=== PATIENT | female | born 1945 | race Caucasian/White ===

== ENCOUNTER → 2019-12-22 15:13 | Outpatient (BNVA) | payer MEDICARE, SELFPAY | PROVIDERS: PCP Internal Medicine; Visit Provider Urology | DX: R35.0 Frequency of micturition (principal); Z87.440 Personal history of urinary (tract) infections; Z79.899 Other long term (current) drug therapy | CPT/HCPCS: 99213 ==

== ENCOUNTER → 2020-03-22 08:48 | Outpatient (BNVA) | payer MEDICARE, SELFPAY | PROVIDERS: PCP Internal Medicine; Visit Provider Urology | DX: Z76.89 Persons encountering health services in other specified circumstances (principal) | CPT/HCPCS: Q3014 ==

== ENCOUNTER 2020-11-10 09:54 | Outpatient (REF) | payer MEDICARE, SELFPAY | END 2020-11-10 09:55 | disposition home or self-care (01) | LOC: HO.LNP 09:54 | PROVIDERS: PCP Internal Medicine | DX: N39.0 Urinary tract infection, site not specified (principal) | CPT/HCPCS: 81002; 87086; 87088; 87186; 99212 ==

== ENCOUNTER → 2020-12-22 10:36 | Outpatient (BNVA) | payer OTHER, MEDICARE, SELFPAY | PROVIDERS: PCP Internal Medicine ==

== ENCOUNTER → 2021-02-21 08:32 | Outpatient (BNVA) | payer OTHER, MEDICARE, SELFPAY | PROVIDERS: PCP Internal Medicine ==

== ENCOUNTER 2021-02-28 12:01 | Outpatient (REF) | payer OTHER, MEDICARE, SELFPAY ==
[2021-02-28 14:03] LABS: Estimated Average Glucose 126 mg/dL
[2021-02-28 14:17] LABS: Alanine Aminotransferase 6 U/L (0-31); Albumin Level 3.7 g/dL (3.5-5.0); Alkaline Phosphatase 85 U/L (39-117); Anion Gap 14 (12-20); Aspartate Amino Transferase 18 U/L (5-31); Bilirubin Total 0.3 mg/dL (0.0-1.0); Blood Urea Nitrogen 31 mg/dL (9-16); Calcium 9.3 mg/dL (8.4-10.2); Carbon Dioxide 19 mmol/L (22-29); Chloride 109 mmol/L (96-108); Estimated Glomerular Filt Rate > 60; Glucose Random 80 mg/dL (60-115); Potassium 4.8 mmol/L (3.3-5.1); Sodium 137 mmol/L (135-145); Total Protein 7.1 g/dL (6.5-8.0)
== END 2021-02-28 12:02 | disposition home or self-care (01) ==
LOC: HO.10HDL 12:01
PROVIDERS: Visit Provider Internal Medicine
DX: D64.9 Anemia, unspecified (principal); E11.40 Type 2 diabetes mellitus with diabetic neuropathy, unspecified; R30.0 Dysuria
CPT/HCPCS: 36415; 80053; 83036; 87086; 87088; 87186

== ENCOUNTER → 2021-05-25 08:39 | Outpatient (BNVA) | payer MEDICARE, SELFPAY | PROVIDERS: PCP Internal Medicine | DX: R35.0 Frequency of micturition (principal); N39.0 Urinary tract infection, site not specified | CPT/HCPCS: Q3014 ==

== ENCOUNTER → 2021-06-02 11:41 | Outpatient (BNVA) | payer MEDICARE, SELFPAY | PROVIDERS: PCP Internal Medicine | DX: N39.0 Urinary tract infection, site not specified (principal); R35.0 Frequency of micturition | CPT/HCPCS: Q3014 ==

== ENCOUNTER 2021-10-12 10:41 | Outpatient (REF) | payer MEDICARE, SELFPAY ==
[2021-10-12 12:22] LABS: Estimated Average Glucose 131 mg/dL; Hemoglobin A1c % 6.2 %
[2021-10-12 12:48] LABS: Alanine Aminotransferase 6 U/L (0-31); Albumin Level 3.9 g/dL (3.5-5.0); Alkaline Phosphatase 90 U/L (39-117); Anion Gap 14 (12-20); Aspartate Amino Transferase 18 U/L (5-31); Bilirubin Total 0.3 mg/dL (0.0-1.0); Blood Urea Nitrogen 31 mg/dL (9-16); Calcium 9.1 mg/dL (8.4-10.2); Carbon Dioxide 21 mmol/L (22-29); Chloride 108 mmol/L (96-108); Estimated Glomerular Filt Rate > 60; Glucose Random 112 mg/dL (60-115); Potassium 5.4 mmol/L (3.3-5.1); Sodium 138 mmol/L (135-145); Total Protein 7.1 g/dL (6.5-8.0)
== END 2021-10-12 10:42 | disposition home or self-care (01) ==
LOC: HO.LAB 10:41
PROVIDERS: PCP Internal Medicine; Visit Provider Internal Medicine
DX: Z00.00 Encounter for general adult medical examination without abnormal findings (principal); R80.8 Other proteinuria; R30.0 Dysuria; E11.40 Type 2 diabetes mellitus with diabetic neuropathy, unspecified; D63.8 Anemia in other chronic diseases classified elsewhere
CPT/HCPCS: 36415; 80053; 83036; 87086; 87088; 87186

== ENCOUNTER 2022-01-08 11:28 | Outpatient (REF) | payer MEDICARE, SELFPAY ==
[2022-01-08 13:48] LABS: Appearance Urine Turbid; Color Urine Yellow; Glucose Urine UA Negative (Negative); Leukocyte Esterase Urine Large (3+) (Negative); Nitrite Urine Negative (Negative); PH 5.5 (5.0-9.0); Specific Gravity - Urine 1.025 (1.005-1.025); UMIC TRIGGER UA YES; Urine Blood Moderate (2+) (Negative); Urine Ketones Negative (Negative); Urine Protein 300 (3+) mg/dL (Neg-Trace)
[2022-01-08 13:51] LABS: Bacteria Urine 4+ (None Seen); Hyaline Casts Urine 0-2 /LPF (0-2); WBC Urine >50 /HPF (0-5)
== END 2022-01-08 11:29 | disposition home or self-care (01) ==
LOC: HO.10HDL 11:28
PROVIDERS: Visit Provider Urology
DX: N39.0 Urinary tract infection, site not specified (principal)
CPT/HCPCS: 81001; 87086; 87088; 87186

== ENCOUNTER 2022-01-11 10:39 | Outpatient (REF) | payer OTHER, SELFPAY ==
--- NOTE | ~2022-01-11 | XR_ITS ---
EXAMINATION: XR SHOULDER RIGHT XR SHOULDER LEFT CLINICAL INFORMATION: Frozen shoulder COMPARISON: None TECHNIQUE: Right shoulder, 4 views Left shoulder, 4 views FINDINGS: Right shoulder: Bones appear to be diffusely osteopenic. There is calcium deposition at the mildly degenerated acromioclavicular joint -- possibly representing calcium pyrophosphate dihydrate crystal deposition. At the glenohumeral joint, there is severe loss of articular cartilage space, chronic articular surface mechanical erosions/remodeling, subarticular sclerosis, subarticular cystic change and exuberant osteophyte formation. A tube projects over the right neck and chest. Atherosclerotic calcification of the aorta and right axillary/brachial artery. Mitral valve annulus is calcified. Left shoulder: Bones appear to be diffusely osteopenic. There is calcium deposition at the mildly degenerated acromioclavicular joint. Findings at the left glenohumeral joint are similar to those seen on the right. There is severe loss of the glenohumeral joint space with [id number] contact, articular surface remodeling, subarticular sclerosis, subarticular cystic change and exuberant osteophyte formation. 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 * Severe osteoarthritis of bilateral glenohumeral joints.
--- NOTE | ~2022-01-11 | XR_ITS ---
EXAMINATION: XR SHOULDER RIGHT XR SHOULDER LEFT CLINICAL INFORMATION: Frozen shoulder COMPARISON: None TECHNIQUE: Right shoulder, 4 views Left shoulder, 4 views FINDINGS: Right shoulder: Bones appear to be diffusely osteopenic. There is calcium deposition at the mildly degenerated acromioclavicular joint -- possibly representing calcium pyrophosphate dihydrate crystal deposition. At the glenohumeral joint, there is severe loss of articular cartilage space, chronic articular surface mechanical erosions/remodeling, subarticular sclerosis, subarticular cystic change and exuberant osteophyte formation. A tube projects over the right neck and chest. Atherosclerotic calcification of the aorta and right axillary/brachial artery. Mitral valve annulus is calcified. Left shoulder: Bones appear to be diffusely osteopenic. There is calcium deposition at the mildly degenerated acromioclavicular joint. Findings at the left glenohumeral joint are similar to those seen on the right. There is severe loss of the glenohumeral joint space with [id number] contact, articular surface remodeling, subarticular sclerosis, subarticular cystic change and exuberant osteophyte formation. 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 * Severe osteoarthritis of bilateral glenohumeral joints.
== END 2022-01-11 10:40 | disposition home or self-care (01) ==
LOC: HO.XRAY 10:39
PROVIDERS: PCP Internal Medicine; Visit Provider Internal Medicine
DX: M75.02 Adhesive capsulitis of left shoulder (principal); M75.01 Adhesive capsulitis of right shoulder
CPT/HCPCS: 73030

== ENCOUNTER → 2022-02-15 09:15 | Outpatient (BNVA) | payer OTHER, SELFPAY | PROVIDERS: PCP Internal Medicine; Visit Provider Physician Assistant | DX: M19.012 Primary osteoarthritis, left shoulder (principal); M19.011 Primary osteoarthritis, right shoulder | CPT/HCPCS: 99202; 99212 ==

== ENCOUNTER 2022-03-16 09:20 | Outpatient (REF) | payer OTHER, SELFPAY | END 2022-03-16 09:21 | disposition home or self-care (01) | LOC: HO.LAB 09:20 | PROVIDERS: PCP Internal Medicine; Visit Provider Urology | DX: N39.0 Urinary tract infection, site not specified (principal); N32.81 Overactive bladder; N95.2 Postmenopausal atrophic vaginitis; N39.41 Urge incontinence; Z79.899 Other long term (current) drug therapy | CPT/HCPCS: 51701; 51798; 87086; 99212 ==

== ENCOUNTER 2022-03-28 10:04 | Outpatient (REF) | payer OTHER, SELFPAY ==
--- NOTE | ~2022-03-28 | CT_ITS ---
EXAMINATION: CT ABDOMEN AND PELVIS WITHOUT CONTRAST CLINICAL INFORMATION: Urinary tract infection. COMPARISON: None TECHNIQUE: Multidetector volumetric imaging was performed from the superior aspect of the liver through the pubic symphysis. Sagittal and coronal reformatted images were obtained on the technologist's workstation. This CT examination was performed using dose optimization techniques as appropriate, variously including the following: *Automated exposure control *Adjustment of mA and/or kV according to patient size (this includes techniques or standardized protocols for targeted exams where dose is matched to indication/reason for exam; i.e. extremities or head) *Use of iterative reconstruction technique DLP: 660 mGy-cm FINDINGS: LUNG BASES: The visualized lung bases are unremarkable. The right hemidiaphragm is elevated. LIVER, GALLBLADDER, AND BILIARY TREE: The liver is enlarged measuring 20 cm in cephalocaudad dimension. The liver border is slightly nodular. Attenuation is normal. The gallbladder is unremarkable. No bile duct obstruction is seen. PANCREAS: Unremarkable. SPLEEN: Unremarkable. ADRENAL GLANDS: Unremarkable. KIDNEYS AND URETERS: The kidneys are normal in size, shape, and attenuation. No hydronephrosis, hydroureter, or calculi seen. No perinephric stranding. BLADDER: Unremarkable. GASTROINTESTINAL TRACT: The small and large bowel are unremarkable aside from the presence of colonic diverticulosis without diverticulitis. The appendix is unremarkable. ABDOMINAL WALL: No significant hernia is appreciated. There is a tunneled catheter extending from the presternal space into the peritoneal cavity with its tip in the right lower quadrant, presumably a FLOOR SWEEPER shunt. LYMPH NODES: No retroperitoneal lymphadenopathy. VASCULAR: Calcific atherosclerotic changes are present in the aorta and iliofemoral vessels without aneurysm. PELVIC VISCERA: The uterus and adnexa are unremarkable. OSSEOUS STRUCTURES: Severe degenerative changes are present throughout the spine with complete fusion of L2 through L4. Marked disc space narrowing is present at all levels with vacuum phenomena. No bony destructive lesions are seen. CT/CT abdomen pelvis wo IV con IMPRESSION: 1. No evidence of urinary tract calculi or obstruction. 2. Enlarged liver with slightly nodular border. 3. Colonic diverticulosis without diverticulitis. 4. 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 Fleischner guidelines were followed.
== END 2022-03-28 10:05 | disposition home or self-care (01) ==
LOC: HO.CT 10:04
PROVIDERS: PCP Internal Medicine; Visit Provider Urology
DX: N39.0 Urinary tract infection, site not specified (principal)
CPT/HCPCS: 74176

== ENCOUNTER 2022-04-17 11:37 | Outpatient (REF) | payer OTHER, SELFPAY ==
[2022-04-17 14:06] LABS: Estimated Average Glucose 120 mg/dL; Hemoglobin A1c % 5.8 %
[2022-04-17 14:12] LABS: Alanine Aminotransferase 7 U/L (0-31); Albumin Level 3.9 g/dL (3.5-5.0); Alkaline Phosphatase 84 U/L (39-117); Anion Gap 11 (12-20); Aspartate Amino Transferase 15 U/L (5-31); Bilirubin Total 0.4 mg/dL (0.0-1.0); Blood Urea Nitrogen 35 mg/dL (9-16); Calcium 9.4 mg/dL (8.4-10.2); Carbon Dioxide 23 mmol/L (22-29); Chloride 110 mmol/L (96-108); Estimated Glomerular Filt Rate > 60; Glucose Random 100 mg/dL (60-115); Potassium 5.4 mmol/L (3.3-5.1); Sodium 139 mmol/L (135-145)
== END 2022-04-17 11:38 | disposition home or self-care (01) ==
LOC: HO.10HDL 11:37
PROVIDERS: Visit Provider Internal Medicine
DX: E11.40 Type 2 diabetes mellitus with diabetic neuropathy, unspecified (principal); E11.621 Type 2 diabetes mellitus with foot ulcer; I12.9 Hypertensive chronic kidney disease with stage 1 through stage 4 chronic kidney disease, or unspecified chronic kidney disease; E11.22 Type 2 diabetes mellitus with diabetic chronic kidney disease; N18.30 Chronic kidney disease, stage 3 unspecified
CPT/HCPCS: 36415; 80053; 83036

== ENCOUNTER 2022-05-22 13:44 | Outpatient (REF) | payer OTHER, SELFPAY ==
[2022-05-22 15:39] LABS: Appearance Urine Clear; Color Urine Yellow; Glucose Urine UA Negative (Negative); Leukocyte Esterase Urine Moderate (2+) (Negative); Nitrite Urine Negative (Negative); PH 5.5 (5.0-9.0); Specific Gravity - Urine <= 1.005 (1.005-1.025); UMIC TRIGGER UA YES; Urine Blood Trace (Negative); Urine Ketones Negative (Negative); Urine Protein Negative (Neg-Trace)
[2022-05-22 15:43] LABS: Bacteria Urine None Seen (None Seen); Hyaline Casts Urine 0-2 /LPF (0-2); RBC Urine 0-2 /HPF (0-2); WBC Urine >50 /HPF (0-5)
== END 2022-05-22 13:45 | disposition home or self-care (01) ==
LOC: HO.LAB 13:44
PROVIDERS: PCP Internal Medicine; Visit Provider Urology
DX: N39.0 Urinary tract infection, site not specified (principal)
CPT/HCPCS: 81001; 87086

== ENCOUNTER → 2022-05-28 09:57 | Outpatient (BNVA) | payer OTHER, SELFPAY | PROVIDERS: PCP Internal Medicine; Visit Provider Urology | DX: N39.0 Urinary tract infection, site not specified (principal) | CPT/HCPCS: 51701 ==

== ENCOUNTER → 2022-06-28 10:26 | Outpatient (BNVA) | payer OTHER, SELFPAY | PROVIDERS: PCP Internal Medicine; Visit Provider Urology | DX: N32.81 Overactive bladder (principal); N39.0 Urinary tract infection, site not specified | CPT/HCPCS: 51701; 99212 ==